=== PATIENT | male | born 1970 | race Two or more races ===

== ENCOUNTER 2019-09-10 06:28 | Inpatient (IN) | payer MEDICAID ==
[~2019-09-10] VITALS: Ht 180.3 cm; Wt 78.5 kg
--- NOTE | 2019-09-10 06:49 | NUR ---
dr carrero at the bed side
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
--- NOTE | 2019-09-10 07:16 | NUR ---
IV LINE ESTABLISHED, BLOOD DRAWN
[2019-09-10] MEDS ORDERED: VANCOMYCIN HCL 1.25 GM in IV D5W 260 ML IV ONE (07:30)
[2019-09-10] MEDS ORDERED: CEFAZOLIN 1 GM in IV D5W 50 ML IV ONE (07:30)
[2019-09-10 07:31] LABS: BASOPHILS % (AUTO) 0.5 % (0.0-2.0); EOSINOPHILS % (AUTO) 1.3 % (0.0-6.0); HEMATOCRIT 41 % (39-51); HEMOGLOBIN 13.5 g/dL (13.5-17.5); LYMPHOCYTES # (AUTO) 2.5 /CMM (0.8-4.8); MEAN CORPUSCULAR HGB CONC 33 g/dl (31.0-36.0); MEAN CORPUSCULAR VOLUME 86 fL (80-96); MONOCYTES # (AUTO) 0.8 /CMM (0.1-1.30); MONOCYTES % (AUTO) 8.4 % (2.0-12.0); NEUTROPHILS # (AUTO) 5.7 /CMM (1.8-8.9); NEUTROPHILS % (AUTO) 62.8 % (43.0-81.0); PLATELET COUNT (AUTO) 412 /CMM (150-450); RED BLOOD CELL COUNT(AUTO) 4.72 MIL/uL (4.5-6.0); WHITE BLOOD COUNT (AUTO) 9.1 K/uL (4.3-11.0)
[2019-09-10 07:38] LABS: CALCIUM, SERUM 9.5 mg/dL (8.5-10.1); POTASSIUM 3.3 mmol/L (3.5-5.1)
[2019-09-10 07:44] LABS: ALBUMIN 3.9 g/dL (3.4-5.0); BILIRUBIN,DIRECT 0.1 mg/dL (0.0-0.2); BILIRUBIN,TOTAL 0.3 mg/dL (0.2-1.0); TOTAL PROTEIN, SERUM 8.3 g/dL (6.4-8.2)
[2019-09-10] MEDS ORDERED: CYAN-51 PO (09:52)
[2019-09-10] MEDS ORDERED: BICT1TAB PO (09:52)
[2019-09-10] MEDS ORDERED: FLUC150T5 PO (09:52)
[2019-09-10] MEDS ORDERED: MULT-659 PO (09:52)
[2019-09-10] MEDS ORDERED: PRED5DRO16 LEFTEYE (09:53)
--- NOTE | 2019-09-10 10:09 | NUR ---
EPIC PAGED. DR. CONROY ON-CALL.
--- NOTE | 2019-09-10 10:19 | NUR ---
BED ASSIGNMENT 320-2
--- NOTE | 2019-09-10 10:26 | NUR ---
REPORT GIVEN TO EVER GARCIA .
--- NOTE | 2019-09-10 11:34 | NUR ---
patient transferred to room 320-2 in stable condition. No distress noted.
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
[2019-09-10 12:30] VITALS: BP 135/80
[2019-09-10] MEDS ORDERED: MAG HYDROX/AL HYDROX/SIMETH 30 ML UDC PO PRN (12:30)
[2019-09-10] MEDS ORDERED: ZOLPIDEM TARTRATE 5 MG TABLET PO PRN (12:30)
[2019-09-10] MEDS ORDERED: Z GUARD REMEDY 2 OZ OINT TP PRN (12:30)
[2019-09-10] MEDS ORDERED: ACETAMINOPHEN 325 MG TABLET PO PRN (12:30)
[2019-09-10] MEDS ORDERED: HYDROCODONE/APAP 5/325MG 1 EACH TABLET PO PRN (12:30)
[2019-09-10] MEDS ORDERED: MAGNESIUM HYDROXIDE 30 ML UDC PO PRN (12:30)
[2019-09-10] MEDS ORDERED: LIDOCAINE 1% INJ 50 ML MDV IJ ONE (12:30)
[2019-09-10] MEDS ORDERED: ONDANSETRON HCL/PF 4 MG/2 ML VIAL IVP PRN (12:30)
[2019-09-10] MEDS ORDERED: FEE PK DOSING 1 MIN EA MC ONE (12:44)
[2019-09-10] MEDS ORDERED: CEFAZOLIN 1 GM in IV NS 0.9% 50 ML IV SCH (13:00)
--- NOTE | 2019-09-10 14:30 | NUR ---
MS RN NOTES DEBRIDEMENT OF WOUND PERFORMED BY TED Ambriz WILL CONTINUE TO MONITOR PATIENT.
[2019-09-10 16:00] VITALS: BP 118/68
[2019-09-10] MEDS: VANCOMYCIN 1 GM in IV D5W 250 ML IV SCH ×2 (16:45→23:57)
--- NOTE | 2019-09-10 19:10 | NUR ---
RN MS OPENING NOTES RECEIVED PATIENT IN BED AWAKE ALERT AND ORIENTED X4, RESPIRATIONS EVEN AND UNLABORED WITH EQUAL RISE AND FALL OF CHEST, DENIES ANY PAIN OR DISCOMFORT AT THIS TIME, IV SITE TO LEFT AC#18G INTACT AND PATENT,NO REDNESS, NO INFILTRATION PRESENT, ORIENTED TO STAFF AND CALL LIGHT AND KEPT WITHIN REACH ,LOW BED AND LOCKED, SAFETY PRECAUTIONS IN PLACE, DRESSING TO RIGHT FINGER REMAINS CLEAN DRY AND INTACT ,ALL NEEDS ATTENDED WILL CONTINUE TO MONITOR AND ATTEND TO NEEDS.
--- NOTE | 2019-09-10 19:19 | NUR ---
MS RN CLOSING NOTES PATIENT IS LAYING IN BED WATCHING TV. APPEARS TO BE COMFORTABLE ON ROOM AIR, NO SOB/ RESPIRATORY DISTRESS NOTED, SATURATING AT 99%. CALL LIGHT WITHIN REACH. NO PAIN NOTED. BED IN LOWEST LOCKED POSITION WITH SIDE RAILS UP X2. WILL ENDORSE REPORT TO PM NURSE.
[2019-09-10 20:00] VITALS: BP 118/65
--- NOTE | 2019-09-11 06:29 | NUR ---
RN MS CLOSING NOTES PATIENT IN BED AWAKE ALERT AND ORIENTED X4, RESPIRATIONS EVEN AND UNLABORED WITH EQUAL RISE AND FALL OF CHEST, DENIES ANY PAIN OR DISCOMFORT AT THIS TIME, IV SITE TO LEFT AC#18G INTACT AND PATENT,NO REDNESS, NO INFILTRATION PRESENT,CALL LIGHT KEPT WITHIN REACH ,LOW BED AND LOCKED, OFFERED DRESSING CHANGE PER PATIENT TED WOUND WOUND BE IN TODAY TO REASSESS, PER PATIENT WILL WAIT TILL THAN TO CHANGE DRESSING,SAFETY PRECAUTIONS IN PLACE, DRESSING TO RIGHT FINGER REMAINS INTACT ,ALL NEEDS ATTENDED WILL CONTINUE TO MONITOR AND ENDORSE TO NEXT SHIFT, ALL DUE MEDS GIVEN NO ADVERSE REACTIONS, PER PATIENT DOES NOT WANT TO CHANGE LINENS AT THIS TIME WHEN OFFERED. ALSO PT DOES NOT WANT DVT PUMPS.
--- NOTE | 2019-09-11 07:37 | NUR ---
MS RN OPENING NOTES RECEIVED PATIENT IN BED, AWAKE, A/O X 4. PATIENT ON ROOM AIR BREATHING NORMAL, NO ACUTE RESPIRATORY DISTRESS NOTED AT THIS TIME. PATIENT DENIES ANY PAIN. LAC # 18 SL PRESENT AND INTACT. REFUSES TO CHANGE INTO HOSPITAL CLOTHING RIGHT NOW. DRESSING INTACT ON THE R INDEX FINGER. SAFETY PRECAUTIONS IN PLACE; BED IN LOW POSITION AND LOCKED, RAILS UP X2, CALL LIGHT WITHIN REACH. WILL CONTINUE TO MONITOR PATIENT.
[2019-09-11 07:40] LABS: CALCIUM, SERUM 9.1 mg/dL (8.5-10.1); CREATININE 0.9 mg/dL (0.6-1.3); MAGNESIUM 2.4 mg/dL (1.8-2.4); PHOSPHORUS 3.5 mg/dL (2.5-4.9); POTASSIUM 4.1 mmol/L (3.5-5.1)
[2019-09-11 07:43] LABS: THYROID STIMULATING HORMONE 2.069 uIU/mL (0.358-3.74)
[2019-09-11 07:49] LABS: BASOPHILS # (AUTO) 0.1 /CMM (0.0-0.2); BASOPHILS % (AUTO) 0.8 % (0.0-2.0); EOSINOPHILS % (AUTO) 1.9 % (0.0-6.0); HEMATOCRIT 40 % (39-51); LYMPHOCYTES # (AUTO) 2.3 /CMM (0.8-4.8); LYMPHOCYTES % (AUTO) 31.5 % (20.0-44.0); MEAN CORPUSCULAR HGB CONC 33 g/dl (31.0-36.0); MEAN CORPUSCULAR VOLUME 86 fL (80-96); MONOCYTES # (AUTO) 0.8 /CMM (0.1-1.30); MONOCYTES % (AUTO) 10.9 % (2.0-12.0); NEUTROPHILS # (AUTO) 3.9 /CMM (1.8-8.9); NEUTROPHILS % (AUTO) 54.9 % (43.0-81.0); PLATELET COUNT (AUTO) 404 /CMM (150-450); RED BLOOD CELL COUNT(AUTO) 4.64 MIL/uL (4.5-6.0); WHITE BLOOD COUNT (AUTO) 7.2 K/uL (4.3-11.0)
[2019-09-11] MEDS: VANCOMYCIN 1 GM in IV D5W 250 ML IV SCH ×2 (07:57→15:53)
[2019-09-11 07:58] VITALS: BP 125/68
[2019-09-11] MEDS ORDERED: IOHEXOL-300 100 ML VIAL IV ONE (12:17)
[2019-09-11] MEDS ORDERED: CT SWABBABLE VALVE TRANS SET 1 EA INFUS.SET MC ONE (12:17)
[2019-09-11] MEDS ORDERED: IV NS 0.9% 250 ML IV ONE (12:18)
[2019-09-11 16:00] VITALS: BP 119/69
--- NOTE | 2019-09-11 18:44 | NUR ---
MS RN CLOSING NOTES PATIENT IN BED, AWAKE, A/O X 4. A FRIEND IS PRESENT AT THE BEDSIDE. PATIENT ON ROOM AIR BREATHING NORMAL, NO ACUTE RESPIRATORY DISTRESS NOTED AT THIS TIME. PATIENT DENIES ANY PAIN. LAC # 18 SL PRESENT, INTACT AND FLUSHING WELL. DRESSING CHANGED TWICE THROUGHOUT THE DAY. IT IS CLEAN AND INTACT. ALL NEEDS ATTENDED TO DURING THE DAY. SAFETY PRECAUTIONS IN PLACE; BED IN LOW POSITION AND LOCKED, RAILS UP X2, CALL LIGHT WITHIN REACH. WILL ENDORSE TO [employer] SUPERVISOR NURSE.
[2019-09-11 20:00] VITALS: BP 139/86
--- NOTE | 2019-09-11 20:03 | NUR ---
Patient resides alone locally. He is ambulatory and independent with adl's. Current dc plan is to return home. Addendum: 09/11/19 at 2002 by JULIEN NEWMAN RN Amended: Links added.
[2019-09-11 20:23] VITALS: BP 139/86
[2019-09-12] MEDS: VANCOMYCIN 1 GM in IV D5W 250 ML IV SCH ×2 (00:21→08:41)
--- NOTE | 2019-09-12 07:10 | NUR ---
RN MS CLOSING NOTES PATIENT IN BED AWAKE ALERT AND ORIENTED X4, RESPIRATIONS EVEN AND UNLABORED WITH EQUAL RISE AND FALL OF CHEST, DENIES ANY PAIN OR DISCOMFORT AT THIS TIME, IV SITE TO LEFT AC#18G INTACT AND PATENT,NO REDNESS, NO INFILTRATION PRESENT, CALL LIGHT KEPT WITHIN REACH ,LOW BED AND LOCKED, SAFETY PRECAUTIONS IN PLACE, DRESSING TO RIGHT FINGER REMAINS CLEAN DRY AND INTACT ,ALL NEEDS ATTENDED WILL CONTINUE TO MONITOR AND ATTEND TO NEEDS AND ENDORSE TO NEST SHIFT, ALL DUE MEDS GIVEN NO ASE..
[2019-09-12 07:23] LABS: CALCIUM, SERUM 9.7 mg/dL (8.5-10.1); POTASSIUM 4.3 mmol/L (3.5-5.1)
[2019-09-12 08:00] VITALS: BP 134/70
[2019-09-12] MEDS ORDERED: SULF1TAB48 PO (12:50)
--- NOTE | 2019-09-12 14:45 | NUR ---
Patient cleared for d/c to home by . Patient awake a/o x 4 , breathing unlabored and even on room air with VS within base line. Dressing changed and wound care as ordered. Patient will visit wound clinic on Saturday. Patient received d/c instructions and educated on new prescribed medication; patient verbalized understanding and will continue on Bactrim as prescribed. Medication sent to preferred pharmacy. All needs attended. IV line removed , no bleeding at the site. I D wrist band removed. Patient signed d/c form and valuable form and all belongings with the patient . Patient safely transferred to the car via wheelchair accompanied by KINGA Pat.
== END 2019-09-12 14:45 | disposition home or self-care (01) | DRG 364 ==
LOC: ER 06:28 → MED 10:41
PROVIDERS: ADMIT Student in an Organized Health Care Education/Training Program; ATTEND Student in an Organized Health Care Education/Training Program
PROC: 0JBJ0ZZ Excision of Right Hand Subcutaneous Tissue and Fascia, Open Approach (ICD-10-PCS; principal; 2019-09-10)
DX: L03.011 Cellulitis of right finger (principal); A53.0 Latent syphilis, unspecified as early or late; E87.6 Hypokalemia; F15.90 Other stimulant use, unspecified, uncomplicated; F17.210 Nicotine dependence, cigarettes, uncomplicated; B95.62 Methicillin resistant Staphylococcus aureus infection as the cause of diseases classified elsewhere; S61.200A Unspecified open wound of right index finger without damage to nail, initial encounter; X58.XXXA Exposure to other specified factors, initial encounter; Y93.9 Activity, unspecified; Y92.009 Unspecified place in unspecified non-institutional (private) residence as the place of occurrence of the external cause
CPT/HCPCS: 36415; 73201-TC; 80048-TC; 80061-TC; 80076-TC; 80202-TC; 83735-TC; 84100-TC; 84443-TC; 85025-TC; 87040-TC; 87070-TC; 87081-TC; A4216; A6403; A6407; G0378; J0690; J3370; J3490; J7050; J7060; Q9967

== ENCOUNTER 2024-05-20 14:42 | Emergency (ER) | payer MEDICAID, OTHER ==
[~2024-05-20] VITALS: Ht 177.8 cm; Wt 81.6 kg
[~2024-05-20 14:42] MED LIST: BICT1TAB PO; CYAN-51 PO; FLUC150T5 PO; MULT-659 PO; PRED5DRO16 LEFTEYE; SULF1TAB48 PO
[2024-05-20] MEDS ORDERED: KETOROLAC TROMETHAMINE INJ 30 MG/ML VIAL ONE (15:03)
[2024-05-20] MEDS: KETOROLAC TROMETHAMINE INJ 60 MG/2 ML VIAL IM ONE (15:08)
[2024-05-20] MEDS ORDERED: IBUP-1957 PO (19:25)
[2024-05-20 21:19] VITALS: BP 132/80; TEMP 98.1; O2SAT 97
== END 2024-05-20 21:19 | disposition home or self-care (01) ==
LOC: ER 14:50
DX: S42.295A Other nondisplaced fracture of upper end of left humerus, initial encounter for closed fracture (principal); R04.0 Epistaxis; F17.200 Nicotine dependence, unspecified, uncomplicated; M79.622 Pain in left upper arm; R51.9 Headache, unspecified; Z79.1 Long term (current) use of non-steroidal anti-inflammatories (NSAID); Z60.2 Problems related to living alone; W01.0XXA Fall on same level from slipping, tripping and stumbling without subsequent striking against object, initial encounter; Y93.89 Activity, other specified; Y92.89 Other specified places as the place of occurrence of the external cause; Y99.8 Other external cause status
CPT/HCPCS: 29240; 70486; 73030; 73060; 73200; 96372; 99285; J1885

== ENCOUNTER 2024-07-29 19:48 | Inpatient (IN) | payer OTHER ==
[~2024-07-29] VITALS: Ht 177.8 cm; Wt 86.2 kg
[~2024-07-29 19:48] MED LIST changes: +IBUP-1957 PO
[2024-07-29] MEDS: IV NS 0.9% 1,000 ML BAG IV ONE (21:30)
[2024-07-29] MEDS ORDERED: CLINDAMYCIN 900 MG/6 ML VIAL ONE (21:58)
[2024-07-29] MEDS ORDERED: VANCOMYCIN 1 GM /D5W 250 ML PB IV ONE (21:58)
[2024-07-29] MEDS ORDERED: PIPERACI/TAZO 3.375GM/D5W 50ML PB IV ONE (21:58)
[2024-07-29] MEDS: VANCOMYCIN 1 GM in IV D5W 250 ML IV ONE (22:00)
[2024-07-29] MEDS: PIPERACILLIN /TAZOBACTAM 3.375 G in IV D5W 50 ML IV ONE (22:00)
[2024-07-29] MEDS: CLINDAMYCIN 600 MG in IV D5W 100 ML IV ONE (22:00)
[2024-07-29 22:01] LABS: BASOPHILS # (AUTO) 0.1 K/uL (0.0-0.2); BASOPHILS % (AUTO) 0.4 % (0.0-2.0); EOSINOPHILS % (AUTO) 0.2 % (0.0-6.0); HEMATOCRIT 35 % (39-51); HEMOGLOBIN 11.6 g/dL (13.5-17.5); LYMPHOCYTES # (AUTO) 2.2 K/uL (0.8-4.8); LYMPHOCYTES % (AUTO) 15.7 % (20.0-44.0); MEAN CORPUSCULAR HEMOGLOBIN 29 PG (26.0-33.0); MEAN CORPUSCULAR HGB CONC 33 g/dl (31.0-36.0); MEAN CORPUSCULAR VOLUME 86 fL (80-96); MONOCYTES # (AUTO) 1.7 K/uL (0.1-1.30); MONOCYTES % (AUTO) 12.3 % (2.0-12.0); NEUTROPHILS # (AUTO) 9.8 K/uL (1.8-8.9); NEUTROPHILS % (AUTO) 71.4 % (43.0-81.0); PLATELET COUNT (AUTO) 341 K/uL (150-450); RED BLOOD CELL COUNT(AUTO) 4.05 MIL/uL (4.5-6.0); RED CELL DISTRIBUTION WIDTH 14.6 % (11.5-15.0); WHITE BLOOD COUNT (AUTO) 13.7 K/uL (4.3-11.0)
[2024-07-29 22:14] LABS: ALBUMIN 3.7 g/dL (3.4-5.0); BILIRUBIN,DIRECT 0.2 mg/dL (0.0-0.2); BILIRUBIN,TOTAL 0.5 mg/dL (0.2-1.0); CREATININE 1.1 mg/dL (0.6-1.3); POTASSIUM 3.9 mmol/L (3.5-5.1); TOTAL PROTEIN, SERUM 7.5 g/dL (6.4-8.2)
[2024-07-29 22:17] LABS: LACTIC ACID 1.3 mmol/L (0.4-2.0)
[2024-07-29 22:18] LABS: INR 0.99 (0.91-1.10); PARTIAL THROMBOPLASTIN TIME 29.2 SEC (24.3-34.3); PROTHROMBIN TIME 10.5 SECS (9.2-11.1)
[2024-07-29] MEDS ORDERED: ACETAMINOPHEN 325 MG TABLET PO PRN (23:30)
[2024-07-29] MEDS ORDERED: ONDANSETRON HCL/PF 4 MG/2 ML VIAL IVP PRN (23:30)
[2024-07-29] MEDS ORDERED: MAGNESIUM HYDROXIDE 30 ML UDC PO PRN (23:30)
[2024-07-29] MEDS ORDERED: HYDROCODONE/APAP 5/325MG TABLET PO PRN (23:30)
[2024-07-29] MEDS: IV NS 0.9% 1,000 ML IV SCH (23:30)
[2024-07-29] MEDS ORDERED: Z GUARD REMEDY 4 OZ OINT TP PRN (23:30)
[2024-07-29] MEDS ORDERED: MAG HYDROX/AL HYDROX/SIMETH 30 ML UDC PO PRN (23:30)
[2024-07-30] MEDS: PIPERACILLIN /TAZOBACTAM 3.375 G in IV D5W 50 ML IV ONE (04:17)
[2024-07-30] MEDS ORDERED: PIPERACILLIN /TAZOBACTAM 3.375 G in IV D5W 50 ML IV SCH (05:00)
[2024-07-30] MEDS: CLINDAMYCIN 600 MG in IV NS 0.9% 46 ML IV SCH (05:00)
[2024-07-30] MEDS ORDERED: CLINDAMYCIN 900 MG/6 ML VIAL ONE (05:45)
[2024-07-30 08:11] LABS: BASOPHILS % (AUTO) 0.2 % (0.0-2.0); EOSINOPHILS # (AUTO) 0.1 K/uL (0.0-0.7); EOSINOPHILS % (AUTO) 0.8 % (0.0-6.0); HEMATOCRIT 36 % (39-51); HEMOGLOBIN 11.9 g/dL (13.5-17.5); LYMPHOCYTES # (AUTO) 1.8 K/uL (0.8-4.8); LYMPHOCYTES % (AUTO) 17.8 % (20.0-44.0); MEAN CORPUSCULAR HEMOGLOBIN 28 PG (26.0-33.0); MEAN CORPUSCULAR HGB CONC 33 g/dl (31.0-36.0); MEAN CORPUSCULAR VOLUME 87 fL (80-96); MONOCYTES # (AUTO) 1.2 K/uL (0.1-1.30); MONOCYTES % (AUTO) 11.9 % (2.0-12.0); NEUTROPHILS # (AUTO) 6.9 K/uL (1.8-8.9); NEUTROPHILS % (AUTO) 69.3 % (43.0-81.0); PLATELET COUNT (AUTO) 303 K/uL (150-450); RED CELL DISTRIBUTION WIDTH 14.6 % (11.5-15.0)
[2024-07-30] MEDS ORDERED: DUPI300S INJ (08:21)
[2024-07-30] MEDS ORDERED: IBUP-1953 PO (08:21)
[2024-07-30] MEDS ORDERED: ACET-2030 PO (08:21)
[2024-07-30 08:32] LABS: CALCIUM, SERUM 8.5 mg/dL (8.5-10.1); MAGNESIUM 2.3 mg/dL (1.8-2.4); PHOSPHORUS 3.2 mg/dL (2.5-4.9); POTASSIUM 4.6 mmol/L (3.5-5.1)
[2024-07-30] MEDS: VANCOMYCIN 1 GM in IV D5W 250 ML IV SCH (09:00)
[2024-07-30] MEDS: PIPERACILLIN /TAZOBACTAM 3.375 G in IV D5W 100 ML IV SCH (11:15)
[2024-07-30] MEDS: CEFTRIAXONE 2 G in IV D5W 100 ML IV SCH (15:31)
[2024-07-30 20:00] VITALS: BP_SYST 122; BP_DIAS 78; BP_DIAS 98; TEMP 97.7; O2SAT 97
[2024-07-31 06:53] LABS: CALCIUM, SERUM 9.6 mg/dL (8.5-10.1); POTASSIUM 4.7 mmol/L (3.5-5.1)
[2024-07-31 07:00] VITALS: BP 123/69; TEMP 97.3; O2SAT 98
[2024-07-31 07:05] LABS: BASOPHILS % (AUTO) 0.2 % (0.0-2.0); EOSINOPHILS # (AUTO) 0.2 K/uL (0.0-0.7); EOSINOPHILS % (AUTO) 1.7 % (0.0-6.0); HEMATOCRIT 36 % (39-51); LYMPHOCYTES % (AUTO) 19.5 % (20.0-44.0); MEAN CORPUSCULAR HEMOGLOBIN 29 PG (26.0-33.0); MEAN CORPUSCULAR HGB CONC 34 g/dl (31.0-36.0); MEAN CORPUSCULAR VOLUME 86 fL (80-96); MONOCYTES # (AUTO) 1.3 K/uL (0.1-1.30); MONOCYTES % (AUTO) 12.7 % (2.0-12.0); NEUTROPHILS # (AUTO) 6.8 K/uL (1.8-8.9); NEUTROPHILS % (AUTO) 65.9 % (43.0-81.0); PLATELET COUNT (AUTO) 342 K/uL (150-450); RED BLOOD CELL COUNT(AUTO) 4.13 MIL/uL (4.5-6.0); RED CELL DISTRIBUTION WIDTH 14.2 % (11.5-15.0); WHITE BLOOD COUNT (AUTO) 10.3 K/uL (4.3-11.0)
[2024-07-31] MEDS ORDERED: AMOX-430 PO (11:55)
[2024-07-31] MEDS ORDERED: DOXY100T2 PO (11:55)
== END 2024-07-31 13:33 | disposition home or self-care (01) | DRG 383 ==
LOC: ER 19:50 → TRANSITION 07-30 02:21 → TELE 07-30 15:30
PROVIDERS: ATTEND Nurse Practitioner Family
DX: L03.116 Cellulitis of left lower limb (principal); D64.9 Anemia, unspecified; F15.10 Other stimulant abuse, uncomplicated; D72.829 Elevated white blood cell count, unspecified; S90.32XA Contusion of left foot, initial encounter; F17.210 Nicotine dependence, cigarettes, uncomplicated; M20.12 Hallux valgus (acquired), left foot; M19.90 Unspecified osteoarthritis, unspecified site; Z79.899 Other long term (current) drug therapy; R26.81 Unsteadiness on feet; X58.XXXA Exposure to other specified factors, initial encounter; Y93.9 Activity, unspecified; Y92.009 Unspecified place in unspecified non-institutional (private) residence as the place of occurrence of the external cause
CPT/HCPCS: 36415; 73630-TC; 73718-TC; 80048-TC; 80076-TC; 80202-TC; 83605-TC; 83735-TC; 84100-TC; 85025-TC; 85730-TC; 87040-TC; 93971-TC; 97116-TC; 97530-TC; A4223; A6403; G0378; J0696; J2543; J3370; J3490; J7030; J7060